=== PATIENT | female | born 1960 | race Caucasian/White ===

== ENCOUNTER 2022-02-25 09:41 | Outpatient (CLI) | payer OTHER | END 2022-02-25 09:51 | disposition home or self-care (01) | LOC: RAD 09:41 | PROVIDERS: ATTEND Internal Medicine | DX: R10.2 Pelvic and perineal pain (principal); R10.30 Lower abdominal pain, unspecified ==

== ENCOUNTER 2022-08-20 09:10 | Outpatient (CLI) | payer OTHER | END 2022-08-20 09:18 | disposition home or self-care (01) | LOC: SONOGRAMA 09:10 | PROVIDERS: ATTEND Internal Medicine | DX: S42.422A Displaced comminuted supracondylar fracture without intercondylar fracture of left humerus, initial encounter for closed fracture (principal); M25.512 Pain in left shoulder ==